=== PATIENT | female | born 1950 | race Native Hawaiian/Other Pacific Islander ===

== ENCOUNTER 2016-08-02 14:02 | Emergency (ER) | payer BC, MEDICARE ==
[2016-08-02 14:25] LABS: URINE APPEARANCE CLEAR; URINE BILIRUBIN NEGATIVE (NEGATIVE); URINE BLOOD NEGATIVE (NEGATIVE); URINE COLOR YELLOW; URINE GLUCOSE (UA) NEGATIVE (NEGATIVE); URINE KETONE NEGATIVE (NEGATIVE); URINE LEUKOCYTE ESTERASE SMALL (NEGATIVE); URINE NITRITE NEGATIVE (NEGATIVE); URINE PROTEIN NEGATIVE (NEGATIVE); URINE UROBILINOGEN 0.2 E.U./dL (0.20 - 1.00)
[2016-08-02 14:36] LABS: URINE RBC 0 - 2 (NONE SEEN); URINE SQUAMOUS EPITHELIAL CELL 0 - 2 /hpf; URINE WBC 0 - 2 (0-2/hpf)
--- NOTE | 2016-08-02 14:39 | Emergency Department Record ---
History of Present Illness - General Chief Complaint: Back Pain/Injury Stated Complaint: lower l back pain Time Seen by Provider: 08/02/16 14:38 Source: Patient Mode of Arrival: Ambulatory Limitations: No limitations - History of Present Illness Initial Comments: The patient is here due to L lower back and groin pain for 4 days off and on. The pain waxes and wanes. She denies any AP, nausea, vomiting, fever, or chills. 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 She denies any arm or leg numbness, tingling, weakness, or any bowel or bladder issues. MD Complaint: Back pain Onset/Timin -: Days(s) Similar Symptoms Previously: Yes Place: Home Radiation: Groin Severity: Moderate Severity scale (1-10): 6 Quality: Aching, Stabbing Consistency: Intermittent Improves With: None Worsens With: None Context: Other Associated Symptoms: Other - Related Data Home Medications Medication Instructions Recorded Confirmed Last Taken Alendronate Sodium [Fosamax] 70 mg PO ASDIR tab 07/31/16 08/02/16 08/02/16 Alprazolam [Xanax] 0.5 mg PO ASDIR tab 07/31/16 08/02/16 08/01/16 Clonazepam 0.5 g PO ASDIR 30 Days 07/31/16 08/02/16 Diazepam 5 mg PO ASDIR 30 Days 07/31/16 08/02/16 08/02/16 Fluticasone Propionate 1 spray EACH NARES ASDIR 15 Days 07/31/16 08/02/16 L.acidoph,Paracasei, B.lactis 1 each PO DAILY cap 07/31/16 08/02/16 08/02/16 [Probiotic] Lansoprazole 30 mg PO ASDIR 90 Days 07/31/16 08/02/16 08/02/16 Levothyroxine Sodium [Synthroid] 88 mcg PO DAILY 90 Days 07/31/16 08/02/1608/02 Lidocaine [Lidoderm] 1 each TP ASDIR patch 07/31/16 08/02/16 08/02/16 Loratadine [Claritin] 10 mg PO DAILY tab.rapdis 07/31/16 08/02/1608/02/17 Magnesium Hydroxide [Milk Of 30 ml PO BID ml 07/31/16 08/02/16 08/01/16 Magnesium] Methadone HCl 10 mg PO ASDIR tab 07/31/16 08/02/16 08/02/16 Metoclopramide HCl 5 mg PO ASDIR 10 Days 07/31/16 08/02/16 08/02/16 Naproxen 500 mg PO BID tab 07/31/16 08/02/16 08/02/16 Oxycodone HCl/Acetaminophen 1 tab PO Q6H tab 07/31/16 Unknown [Endocet 2.5-325 Mg Tablet] Oxycodone HCl/Acetaminophen 1 tab PO ASDIR 20 Days 07/31/16 08/02/16 08/02/16 [Oxycodone/Acetaminophen 2.5mg/325mg] Sertraline HCl 100 mg PO ASDIR 90 Days 07/31/16 08/02/16 08/02/16 Topiramate 50 mg PO DAILY 30 Days 07/31/16 08/02/16 08/02/16 Ubidecarenone/Vitamin E Mixed 1 each PO DAILY cap 07/31/16 08/02/16 08/02/16 [Hok64-Aef E 100 Mg-10 Unit Sfg] Zofran 4 mg PO ASDIR tab 07/31/16 Unknown Allergies Allergy/AdvReac Type Severity Reaction Status Date / Time levofloxacin [From Levaquin] Allergy ANAPHYLAXIS Verified 08/02/16 14:19 Sulfa (Sulfonamide Allergy VOMITING Verified 08/02/16 14:19 Antibiotics) sumatriptan [From Imitrex] Allergy MIGRAINES Verified 08/02/16 14:19 sumatriptan succinate Allergy MIGRAINES Verified 08/02/16 14:19 [From Imitrex] Travel Screening - Travel/Exposure Within Last 30 Days Have you traveled within the last 30 days?: No - Travel/Exposure Within Last Year Have you traveled outside the [place] in the last year?: No - Additonal Travel Details Have you been exposed to anyone with a communicable illness?: No - Travel Symptoms Symptom Screening: None Review of Systems Constitutional: Denies: Chills, Fever Eyes: Denies: Eye discharge ENT: Denies: Congestion Respiratory: Denies: Cough, Dyspnea Past Medical History - SOCIAL HISTORY Smoking Status: Never smoker Alcohol Use: None Drug Use: None - RESPIRATORY Hx Respiratory Disorders: No - CARDIOVASCULAR Hx Cardio Disorders: No - NEURO Hx Neuro Disorders: No - GI Hx GI Disorders: Yes Hx Reflux: Yes - Hx Genitourinary Disorders: No - ENDOCRINE Hx Endocrine Disorders: Yes Hx Thyroid Disease: Yes - MUSCULOSKELETAL Hx Musculoskeletal Disorders: Yes - PSYCH Hx Psych Problems: No - HEMATOLOGY/ONCOLOGY Hx Hematology/Oncology Disorders: No Family Medical History Any Significant Family History?: Yes Hx Cancer: Mother Physical Exam - General General Appearance: Alert, Oriented x3, Cooperative, No acute distress - Head Head exam: Atraumatic - Eye Eye exam: Normal appearance, PERRL Pupils: Normal accommodation - ENT Throat exam: Normal inspection. negative: Tonsillar erythema, Tonsillar exudate - Neck Neck exam: Normal inspection, Full ROM. negative: Tenderness - Respiratory Respiratory exam: Normal lung sounds bilaterally. negative: Respiratory distress - Cardiovascular Cardiovascular Exam: Regular rate, Normal rhythm, Normal heart sounds - GI/Abdominal GI/Abdominal exam: Soft, Normal bowel sounds. negative: Rebound, Rigid, Tenderness - Extremities Extremities exam: Normal inspection, Full ROM, Normal capillary refill. negative: Tenderness - Back Back exam: Reports: Normal inspection. Denies: Muscle spasm, Paraspinal tenderness, Vertebral tenderness Course Vital Signs 08/02/16 14:30 Temperature 98.6 F Pulse Rate 78 Respiratory 18 Rate Blood Pressure 115/69 Pulse Ox 97 - Reevaluation(s) Reevaluation #1: The patient is doing very well. She denies any new issues or any significant discomfort at this time. She is up walking with no problems or difficulty. I did explain the CT and lab results to her and the need for F/U. 08/02/16 16:10 Medical Decision Making - Data Complexity MDM Data: Labs Ordered and/or Reviewed, X-Ray Ordered and/or Reviewed - Lab Data Result diagrams: 08/02/16 15:03 08/02/16 15:03 Lab Results 08/02/16 Range/Units 14:15 Urine Color Yellow Urine Appearance Clear Urine pH 7.0 (5.0-8.0) Ur Specific [place] <= 1.005 (1.002-1.030) Urine Protein Negative (NEGATIVE) Urine Glucose (UA) Negative (NEGATIVE) Urine Ketones Negative (NEGATIVE) Urine Blood Negative (NEGATIVE) Urine Nitrite Negative (NEGATIVE) Urine Bilirubin Negative (NEGATIVE) Urine Urobilinogen 0.2 (0.20 - 1.00) E.U./dL Ur Leukocyte Esterase Small H (NEGATIVE) Urine RBC 0 - 2 (NONE SEEN) Urine WBC 0 - 2 (0-2/hpf) U Non-Squamous Epi Cells 0 - 2 /hpf - Radiology Data Radiology results: Report reviewed (CT: Neg stones, hydro, or any acute pathology.) Disposition Disposition: Discharge Clinical Impression: Low back pain Qualifiers: Chronicity: acute Back pain laterality: left Sciatica presence: without sciatica Qualified Code(s): M54.5 - Low back pain Disposition: Home, Self-Care Condition: (1) Good Instructions: Low Back Strain (ED) Additional Instructions: Please continue your regular medicines for pain. Please see your PCP this week for recheck. Return to the ER for any increased pain, fever, or vomiting. Forms: Patient Portal Access Time of Disposition: 16:10
[2016-08-02 15:10] LABS: BASO % 0.4 % (0-6); EOS % 0.8 % (0-6); GRAN % 58.1 % (47-80); HEMATOCRIT 44.8 % (35.0-47.0); HEMOGLOBIN 14.1 gm/dl (11.6-16.0); LYMPH % 32.5 % (16-45); MEAN CELL VOLUME 95.7 fl (81-97); MEAN CORPUSCULAR HEMOGLOBIN 30.1 pg (27-33); MEAN CORPUSCULAR HGB CONC 31.5 g/dl (32-36); MEAN PLATELET VOLUME 9.5 fl (7.4-10.4); MONO % 8.2 % (0-9); PLATELET COUNT 275 K/uL (130-400); RED BLOOD COUNT 4.68 M/uL (3.80-5.40); RED CELL DISTRIBUTION WIDTH 12.8 % (11.5-14.5)
[2016-08-02 15:25] LABS: ANION GAP 8.2 (7-16); BLOOD UREA NITROGEN 23 mg/dL (7-17); CARBON DIOXIDE 29.8 mmol/L (22-30); EST GLOMERULAR FILTRATION RATE 59 ml/min; GLUCOSE,RANDOM 107 mg/dL (70-110)
[2016-08-02 15:32] LABS: C-REACTIVE PROTEIN < 0.5 mg/dL (0.0-0.9)
== END 2016-08-02 16:17 | disposition home or self-care (01) ==
LOC: ER 14:02
DX: M54.5 Low back pain (principal); R10.30 Lower abdominal pain, unspecified
CPT/HCPCS: 74176; 80048; 81001; 85025; 85651; 86140; 99283